=== PATIENT | female | born 1960 | race Caucasian/White ===

== ENCOUNTER → 2025-06-26 | Outpatient (CLI) | payer MEDICARE, BC, SELFPAY ==
[2025-06-26 16:50] LABS: Collection Type, Urine Clean Catch
[2025-06-26 17:13] LABS: Basophils # (Auto) 0.1 Thou/mm3 (0.0-0.2); Basophils % (Auto) 1 % (0-2.5); Eosinophils # (Auto) 0.2 Thou/mm3 (0.0-0.5); Eosinophils % (Auto) 2 % (0-10); Hematocrit 40.2 % (36.0-46.0); Hemoglobin 13.2 g/dL (12.0-16.0); Immature Granulocytes Auto 0.01 Thou/mm3 (0.00-0.00); Lymphocytes # (Auto) 2.1 Thou/mm3 (1.0-4.8); Lymphocytes % (Auto) 28 % (10-50); Mean Corpuscular HGB Conc 32.8 g/dl (31.0-37.0); Mean Corpuscular Hemoglobin 29.7 pg (25.0-35.0); Mean Corpuscular Volume 91 fL (80-100); Monocytes # (Auto) 0.4 Thou/mm3 (0.0-0.8); Monocytes % (Auto) 5 % (0-12); Neutrophils # (Auto) 4.9 Thou/mm3 (1.8-7.7); Neutrophils % (Auto) 64 % (37-80); Nucleated Red Blood Cell # 0.00 Thou/mm3 (0.00-0.00); Nucleated Red Blood Cell % 0 /100 WBC (0); Platelet Count 342 Thou/mm3 (140-440); RDW Standard Deviation 39.2 fL (36.4-46.3); Red Blood Count 4.44 Miln/mm3 (4.00-5.20); White Blood Count 7.6 Thou/mm3 (3.6-11.0)
[2025-06-26 17:16] LABS: Bilirubin,Urine Negative (Negative); Blood,Urine Negative (Negative); Clarity,Urine Clear (Clear/Hazy); Color,Urine Lt-Green (Lt Yel-Yel); Glucose, Urine Negative (Negative); Ketones,Urine Negative (Negative); Leukocyte Esterase,Urine Negative (Negative); Nitrite,Urine Negative (Negative); PH,Urine 5.5 (5.0-7.0); Protein,Urine Negative (Neg - Trace); RBC,Urine 4 /hpf (0-3); Specific Gravity,Urine 1.031 (1.001-1.035); Squamous Epithelial Cell,Urine 1 /hpf (0-5); Urobilinogen,Urine Negative mg/dL (0.0-1.0); WBC,Urine 1 /hpf (0-5)
[2025-06-26 17:17] LABS: Glucose Estimated Average 105 mg/dL (80-131); Hemoglobin A1C 5.3 % Hgb (4.8-6.0)
[2025-06-26 17:32] LABS: Alanine Aminotransferase 18 U/L (10-49); Albumin, Serum 4.9 gm/dL (3.4-4.8); Alkaline Phosphatase 85 U/L (46-116); Anion Gap 9 (7-16); Aspartate Amino Transferase 22 U/L (0-34); BUN/Creatinine Ratio 15 Ratio (12-20); Bilirubin,Direct 0.2 mg/dL (0.0-0.3); Bilirubin,Total 0.5 mg/dL (0.3-1.2); Blood Urea Nitrogen 15 mg/dL (9-23); Calcium 9.5 mg/dL (8.3-10.6); Carbon Dioxide 28.6 mMol/L (20.0-31.0); Chloride 105 mMol/L (98-107); Creatinine (Component) 1.0 mg/dL (0.6-1.3); Free T3 3.9 pg/mL (2.3-4.2); Free T4 (Free Thyroxine) 1.08 ng/dL (0.89-1.76); Glucose 94 mg/dL (74-106); Osmolality,Calculated 285 (275-295); Phosphorous 3.6 mg/dL (2.4-5.1); Potassium 3.9 mMol/L (3.4-5.1); Sodium 143 mMol/L (136-145); Total Protein 7.0 gm/dL (5.7-8.2); eGFR > 60 See Note
[2025-07-10 06:59] LABS: DHEA Sulfate* 56 mcg/dL (12-133); Estrogen, Total, Serum* 53 pg/mL; Homocysteine* 8.4 umol/L (< OR = 13.4); Progesterone,LC/MS* <0.1 ng/mL; T3, Reverse, LC/MS/MS* 13 ng/dL (8-25); Testosterone, Free,Dialysis 2.3 pg/mL (0.1-6.4); Testosterone, Total, Dialysis 48 ng/dL (2-45); hs-CRP* 3.0 mg/L
== END | disposition home or self-care (01) ==
PROVIDERS: PCP Family Medicine; Referring Provider Family Medicine; Visit Provider Family Medicine
DX: E03.9 Hypothyroidism, unspecified (principal); E08.9 Diabetes mellitus due to underlying condition without complications; E34.9 Endocrine disorder, unspecified; E88.9 Metabolic disorder, unspecified
CPT/HCPCS: 36415; 80048; 80076; 81001; 82627; 82672; 83036; 83090; 84100; 84144; 84402; 84403; 84439; 84481; 84482; 85025; 86141